=== PATIENT | female | born 2000 | race Caucasian/White ===

== ENCOUNTER → 2022-04-20 | Outpatient (CLI) | payer BC ==
--- NOTE | 2022-04-20 10:03 | Diagnostic Imaging Report ---
PROCEDURE: US Thyroid. TECHNIQUE: Multiple real-time grayscale images were obtained of the thyroid in various projections. INDICATION: Enlarged thyroid. Right lobe thyroid measures 5.1 x 1.4 x 1.7 cm, the left lobe measures 4.5 x 1.6 x 1.4 cm. Isthmus is 2 mm in thickness. Both the right and left lobes of the thyroid show fairly homogeneous echotexture and are without evidence of a discrete mass. . IMPRESSION: Unremarkable thyroid ultrasound. Dictated by: Dictated on workstation # [id number]
== END ==
LOC: RAD 08:00
PROVIDERS: ATTEND Nurse Practitioner
DX: E04.9 Nontoxic goiter, unspecified (principal)
CPT/HCPCS: 76536